=== PATIENT | female | born 1955 | race Hispanic/Latino ===

== ENCOUNTER 2022-08-24 09:38 | Outpatient (CLI) | payer OTHER, MEDICAID | END 2022-08-24 09:39 | disposition home or self-care (01) | LOC: CSHMAMMO 09:38 | PROVIDERS: ATTEND Family Medicine | DX: Z12.31 Encounter for screening mammogram for malignant neoplasm of breast (principal); Z13.820 Encounter for screening for osteoporosis; M85.89 Other specified disorders of bone density and structure, multiple sites; Z78.0 Asymptomatic menopausal state | CPT/HCPCS: 77063; 77067; 77080 ==

== ENCOUNTER 2025-07-12 05:34 | Day surgery (SDC) | payer OTHER ==
[2025-07-10 16:02] VITALS: BMI 31.6
[2025-07-12] MEDS ORDERED: PROPOFOL 40 ML ONE (07:01)
[2025-07-12] MEDS ORDERED: Lidocaine 1% PF 5 ML VIAL ONE (07:07)
[2025-07-12] MEDS ORDERED: Bacitracin 1 PK ONE (07:13)
[2025-07-12] MEDS ORDERED: AFRIN NASAL MIST 15 ML BOT ONE ×2 (07:13→07:22)
[2025-07-12] MEDS ORDERED: Lidocaine 1% w/Epinephrine 1:200K 30 ML VIAL ONE (07:14)
[2025-07-12 07:35] LABS: Hematocrit 37.8 % (34.9-44.5); Hemoglobin 12.1 g/dL (12.0-15.5)
[2025-07-12] MEDS ORDERED: Famotidine/PF 20 mg/2ml Vial ONE (07:43)
[2025-07-12] MEDS ORDERED: Racepinephrine 2.25% 0.5 ML NEB ONE (07:54)
[2025-07-12 08:01] LABS: Anion Gap 13 mmol/L (10-20); BUN (Urea Nitrogen) 14 mg/dL (9.8-20.1); Calc. Creatinine Clearance 113 mL/min (70-130); Calcium 9.1 mg/dL (7.8-10.44); Carbon Dioxide 24 mmol/L (23-31); Chloride 108 mmol/L (98-107); Glucose 94 mg/dL (83-110); Potassium 4.2 mmol/L (3.5-5.1); Sodium 141 mmol/L (136-145)
[2025-07-12] MEDS ORDERED: Albuterol HFA (OR) 200 PUFF INH ONE (08:05)
[2025-07-12] MEDS ORDERED: Oxymetazoline HCl 0.05% (15 ML) ONE (08:12)
[2025-07-12] MEDS ORDERED: Ondansetron PF 4 MG/2 ML Vial ONE (08:44)
[2025-07-12] MEDS ORDERED: SUGAMMADEX SODIUM 200 MG/2 ML VIAL ONE (08:44)
[2025-07-12] MEDS ORDERED: Hydrocodone-Acetamin 15 ML UDCUP ONE (11:31)
== END 2025-07-12 12:05 | disposition home or self-care (01) ==
LOC: CSHSDC 05:34
PROVIDERS: ATTEND Specialist
PROC: 09TV8ZZ Resection of Left Ethmoid Sinus, Via Natural or Artificial Opening Endoscopic (ICD-10-PCS; principal; 2025-07-12)
PROC: 09TU8ZZ Resection of Right Ethmoid Sinus, Via Natural or Artificial Opening Endoscopic (ICD-10-PCS; 2025-07-12)
PROC: 8E09XBZ Computer Assisted Procedure of Head and Neck Region (ICD-10-PCS; 2025-07-12)
PROC: 09BM8ZZ Excision of Nasal Septum, Via Natural or Artificial Opening Endoscopic (ICD-10-PCS; 2025-07-12)
PROC: 09TL8ZZ Resection of Nasal Turbinate, Via Natural or Artificial Opening Endoscopic (ICD-10-PCS; 2025-07-12)
DX: J34.2 Deviated nasal septum (principal); J34.3 Hypertrophy of nasal turbinates; J32.4 Chronic pansinusitis; J30.9 Allergic rhinitis, unspecified; K21.00 Gastro-esophageal reflux disease with esophagitis, without bleeding; R09.89 Other specified symptoms and signs involving the circulatory and respiratory systems; G44.209 Tension-type headache, unspecified, not intractable; M26.601 Right temporomandibular joint disorder, unspecified; I10 Essential (primary) hypertension; Z79.899 Other long term (current) drug therapy
CPT/HCPCS: 30140; 30520; 31256; 31257; 31276; 61782; 80048; 85014; 85018; 93005; J0169; J1010; J1100; J1308; J2405; J2704; J3010; 36415; 93010